=== PATIENT | female | born 1950 | race Caucasian/White ===

== ENCOUNTER → 2023-12-30 11:00 | Outpatient (REF) | payer MEDICARE, OTHER, SELFPAY | LOC: WDC 11:00 | PROVIDERS: ATTENDING PHYSICIAN Family Medicine | DX: Z12.31 Encounter for screening mammogram for malignant neoplasm of breast (principal) | CPT/HCPCS: 77063; 77067 ==

== ENCOUNTER → 2025-02-05 09:28 | Outpatient (REF) | payer MEDICARE, OTHER, SELFPAY | LOC: WDC 09:28 | PROVIDERS: ATTENDING PHYSICIAN Family Medicine | DX: Z12.31 Encounter for screening mammogram for malignant neoplasm of breast (principal); M85.88 Other specified disorders of bone density and structure, other site | CPT/HCPCS: 77063; 77067; 77080 ==

== ENCOUNTER → 2025-02-18 08:35 | Outpatient (REF) | payer MEDICARE, OTHER, SELFPAY | LOC: WDC 08:35 | PROVIDERS: ATTENDING PHYSICIAN Family Medicine | DX: R92.8 Other abnormal and inconclusive findings on diagnostic imaging of breast (principal) | CPT/HCPCS: 76642 ==

== ENCOUNTER → 2025-04-16 08:19 | Outpatient (REF) | payer MEDICARE, OTHER, SELFPAY ==
--- NOTE | 2025-04-16 13:32 | OID.BR.INTR ---
SELENED Breast Navigator - Initial
- -
Date of Contact: 04/16/25
Met with patient. Patient given written information on navigator service available at [facility]. Will follow up as needed per protocol.
== END ==
LOC: WDC 08:19
PROVIDERS: ATTENDING PHYSICIAN Family Medicine
DX: N63.21 Unspecified lump in the left breast, upper outer quadrant (principal); N63.23 Unspecified lump in the left breast, lower outer quadrant
CPT/HCPCS: 19083; 19084; 88305; 88341; 88342; 88360; A4648

== ENCOUNTER → 2025-04-30 16:30 | Outpatient (REF) | payer MEDICARE, OTHER, SELFPAY | LOC: MRI 3T 16:30 | PROVIDERS: ATTENDING PHYSICIAN Surgery; FAMILY PHYSICIAN Family Medicine | DX: C50.919 Malignant neoplasm of unspecified site of unspecified female breast (principal) | CPT/HCPCS: 77049; A9585 ==

== ENCOUNTER → 2025-06-17 08:43 | Outpatient (REF) | payer MEDICARE, OTHER, SELFPAY | LOC: WDC 08:43 | PROVIDERS: ATTENDING PHYSICIAN Surgery; FAMILY PHYSICIAN Family Medicine | DX: C50.919 Malignant neoplasm of unspecified site of unspecified female breast (principal) | CPT/HCPCS: 38792; 76942; A9541 ==

== ENCOUNTER 2025-06-18 19:00 | Inpatient (IN) | payer MEDICARE, OTHER, SELFPAY ==
[2025-06-10 09:01] LABS: Hematocrit 43.2 % (37.0-47.0); Hemoglobin 14.4 g/dL (12.0-16.0); Mean Corp Hgb Conc. 33.3 g/dL (33.0-37.0); Mean Corpuscular Volume 88.5 fL (81.0-99.0); Nucleated Red Blood Cells % 0 %; Platelet Count 172 10^3/uL (130-400); Red Cell Dist. Width 13.2 % (11.5-14.5)
[2025-06-10 09:31] LABS: ALT (SGPT) 29 U/L (0-35); AST (SGOT) 32 U/L (14-36); Albumin 4.6 g/dl (3.5-5.0); Alkaline Phosphatase 71 U/L (38-126); Blood Urea Nitrogen 17 mg/dl (7-17); Calcium 10.0 mg/dl (8.4-10.2); Carbon Dioxide 31 mmol/L (22-30); Chloride 101 mmol/L (98-107); Glucose 108 mg/dl (70-99); Potassium 4.8 mmol/L (3.5-5.1); Sodium 141 mmol/L (135-145); Total Protein 7.4 g/dl (6.3-8.2); eGFR > 60.00
[2025-06-10 09:41] LABS: Prealbumin (Transthyretin) 30.1 mg/dl (17.6-36.0)
[2025-06-10 09:54] LABS: Vitamin D, 25-OH*** 46.8 ng/mL (30-80)
[2025-06-10 13:39] VITALS: BMI 27.3
[2025-06-18] VITALS (13 sets, daily range): BP systolic 5–149; BP diastolic 65–81; BMI 27.3
--- NOTE | 2025-06-18 13:00 | W.SUR.PREOP ---
Pre-Operative Surgical Note
-
I have examined this patient prior to the performance of the scheduled procedure.
The patient's condition is unchanged from the time of the current History and
Physical and the patient is able to undergo the scheduled procedure.
[2025-06-18] MEDS: NORMOSOL-R/PLASMALYTE-A 1000 IV (13:08)
--- NOTE | 2025-06-18 14:03 | OR.RPT ---
Addendum entered and electronically signed by Simone Brar MD 06/26/25 13:44:
Correction:
Date of procedure is 06/18/2025
Original Note:
Operative Report
Operative Report
Date of Procedure: 06/19/25
Surgeon: SIMRAN Brar MD
Preoperative diagnosis: Breast cancer
Postoperative diagnosis: Same
Procedure:
1. Bilateral immediate breast reconstruction with prepectoral tissue expanders
2. Total anterior coverage technique for ADM wrap
3. Spy angiography
Complications: None
Anesthesia: General
EBL:30cc
Finance And Administration Manager size: 12 cm
Indications for procedure: Patient was referred to me by Dr. Sanchez with a recent diagnosis of breast cancer. She was planned to undergo bilateral mastectomy. We discussed her options for breast reconstruction at length including implant based
and autologous options. The patient opted for immediate reconstruction with tissue expanders. She understands that the final reconstruction will be staged. We also discussed the use of ADM and spy angiography. Risks include reconstructive
failure, capsular contracture, infection, delayed wound healing, mastectomy skin flap necrosis, hematoma, seroma and need for repeat procedure. Patient understood these risks and desired to proceed. Consents were signed accordingly.
Procedure in detail: Patient was identified the preoperative area and the surgical site was confirmed to be the bilateral breast. All questions were answered and consents were confirmed. Patient was then sat upright and normal anatomical landmarks
were marked including midline and inframammary fold. Patient was then taken back to the operating room placed supine on the table. She was prepped and draped in the usual sterile fashion using ChloraPrep solution. A Maos catheter was placed. A
timeout for patient safety was performed was confirmed that bilateral SCDs were in place and preoperative antibiotics administered. The procedure began with Dr. Sanchez first performing the mastectomy. Her op report will be dictated separately.
When I entered the procedure, the first sided mastectomy had been completed. As such I inspected the wound bed of the chest wall and ensured meticulous hemostasis. The base width was measured and appropriate tissue epic ambulatory specialists was selected. Two 6 x
16 sheets of Cortiva ADM were soaked in dilute Betadine solution and passed through the skin graft mesher on carrier of 1-1.5. This construct was then draped around the tissue epic ambulatory specialists in a total anterior coverage technique. The epic ambulatory specialists ADM
construct was then sutured to the chest wall with a series of 2-0 silk sutures. Pectoralis and intercostal blocks were performed with Marcaine. 2 drains were then placed in the preaxial area line with a long subcutaneous tunnel and sutured in
place with 2-0 Prolene sutures. The wound was irrigated with double antibiotic solution and dilute Betadine. The mastectomy incisions were then closed with a series of 3-0 Vicryl's in the deep subcutaneous tissues followed by 3-0 and 4-0
Monocryl's in the deep dermis and superficial skin.
Attention was then placed on the contralateral side after completion of the mastectomy. The exact same procedure was performed. An epic ambulatory specialists of the same size was opened and 2 sheets of ADM were soaked in Betadine, meshed, and draped around the
anterior surface of the epic ambulatory specialists in a total anterior coverage technique. The construct was then sutured to the chest wall using 2-0 silks. Pectoralis and intercostal blocks were performed. Meticulous hemostasis was ensured and the wound was
irrigated with combination of double antibiotic solution consisting of Ancef and gentamicin as well as dilute Betadine. The wound was closed in layers with 3-0 Vicryl followed by 3-0 Monocryl and 4-0 Monocryl superficial skin.
Spy angiography was performed after closure to ensure adequate vascularity of the bilateral mastectomy flaps. This was confirmed. The wounds were dressed accordingly and a supportive bra was placed. The patient was extubated taken to the PACU for
further care. All counts were correct at the end the case was performed out complication.
--- NOTE | 2025-06-18 14:04 | W.IMMPOSTOP ---
Surgical Immed Post Op Note
-
Primary Surgeon: SIMRAN Brar MD
Assisting Surgeon:
Pre-op Diagnosis: Breast CA
Post-op Diagnosis: Same
Procedure Performed: Bilateral immediate breast reconstruction with tissue expanders, ADM, spy
Anesthesia Type: GA
Specimen / Cultures: Per Dr. Sanchez
Estimated Blood Loss: 30cc
Complications: None
Operative Findings: As expected
--- NOTE | 2025-06-18 17:56 | W.IMMPOSTOP ---
Surgical Immed Post Op Note
-
Primary Surgeon: Daniel
Assisting Surgeon: None
Pre-op Diagnosis: Left breast ca
Post-op Diagnosis: Left breast ca
Procedure Performed: bilateral skin sparing mastectomies and left sentinel lymph node mapping and biopsy
Anesthesia Type: GET
Specimen / Cultures: Bilateral breasts, left sentinel nodes
Estimated Blood Loss: 20cc
Complications: None
Operative Findings: None
--- NOTE | 2025-06-18 17:58 | OR.RPT ---
Addendum entered and electronically signed by Erinn Sanchez MD 06/23/25 15:35:
Synoptic operative report [place] node
Operation performed with curative intent: Yes
Dye used in neoadjuvant setting: N/AA
Tracer used in not neoadjuvant setting: Radioactive
Lymph nodes at end of dye filled channels removed: N/A
All significant radioactive lymph nodes removed: Yes
All clinically palpable suspicious lymph nodes removed: Yes
Positive nodes prior to neoadjuvant chemotherapy clipped: N/A
Original Note:
Operative Report
Operative Report
Operative date 06/18/2025
Surgeon: Daniel
Preoperative diagnosis: Multicentric left breast carcinoma
Postoperative diagnosis: Multicentric left breast carcinoma
Procedure: Bilateral skin sparing mastectomies and left sentinel lymph node mapping and biopsy
The patient is a 74-year-old female who had image detected infiltrating lobular carcinoma of the left breast. This was found to be multicentric and after consulting with plastic surgery she presents for bilateral skin-sparing mastectomies and left
sentinel lymph node mapping and biopsy. On the day prior to the procedure the patient presented to the [place] [facility] where technetium radiotracer was injected into the breast parenchyma. On the day of the procedure she presented to
same-day surgical services. She was prepped and verified site and procedures. She will also be undergoing immediate implant-based reconstruction. DVT and antibiotic prophylaxis were provided. Plastic surgery marked the incisions.
The patient was taken to the operating room and in the supine position general anesthesia was induced. Amos catheter was inserted using aseptic technique. Both arms were secured to armboards using Tre wrap's. Chest and breast as well as upper
abdomen are prepped and draped in usual sterile fashion. An appropriate timeout was performed by all team members.
Dissection was begun on the right side. Incision was made sharply and the marked periareolar region which included excision of the nipple areolar complex and inferior skin. Skin flaps were elevated using the PlasmaBlade and lighted retractor. The
breast was taken off the chest wall in a superior to inferior dimension. Time out of body was noted and the specimen was oriented for the pathologist. Hemostasis was verified and a moist pack was placed in the resection cavity. Plastic surgery
entered to begin the reconstructive portion of the procedure.
In the same manner the left side was approached and the breast was resected. This allowed entry into the axilla. Clavipectoral fascia was incised and using the neoprobe gamma probe 3 sentinel node packets were encountered and excised by clamping
feeding vessels and tying with 3-0 silk. Hemostasis was verified and a moist pack was placed in this cavity.
All sponge needle and instrument counts were correct at this juncture. Plastic surgery continued with the reconstructive portion of the procedure
([id number], [id number])
--- NOTE | 2025-06-18 18:46 | PTCARENOTE ---
Pt arrived to 2S in bed. KIKE drain sites C/D/I, sutured in place. B/L breast DSGs C/D/I, soft around the site, no hematoma noted, surgical bra maintained. Drowsy but easily arouses to verbal stimuli. Bed locked and in the lowest position, safety
maintained. Oriented to room and call salazar, spouse at bedside.
[2025-06-18] MEDS: NEURONTIN 100 MG PO (22:21)
[2025-06-18] MEDS: ANCEF 5 IV (22:21)
[2025-06-18] MEDS: FLUSH (NSS) 2 FLUSH IV (22:21)
[2025-06-18] MEDS: TYLENOL 1000 MG PO (22:22)
[2025-06-19 03:00] VITALS: BP 104/57
[2025-06-19] MEDS: TYLENOL 1000 MG PO ×2 (05:48→11:17)
[2025-06-19] MEDS: FLUSH (NSS) 2 FLUSH IV (05:49)
[2025-06-19] MEDS: ANCEF 5 IV ×2 (05:49→13:40)
[2025-06-19 07:03] LABS: Hematocrit 39.4 % (37.0-47.0); Hemoglobin 12.8 g/dL (12.0-16.0)
[2025-06-19 07:05] VITALS: BP 139/67
[2025-06-19 07:34] LABS: Blood Urea Nitrogen 18 mg/dl (7-17); Calcium 9.0 mg/dl (8.4-10.2); Carbon Dioxide 27 mmol/L (22-30); Chloride 102 mmol/L (98-107); Estimated Creatinine Clearance 56 ml/min; Glucose 127 mg/dl (70-99); Potassium 4.2 mmol/L (3.5-5.1); Sodium 134 mmol/L (135-145); eGFR > 60.00
[2025-06-19] MEDS: NEURONTIN 100 MG PO (08:33)
--- NOTE | 2025-06-19 08:47 | W.PN.UPDATE ---
Addendum entered and electronically signed by Erinn Sanchez MD 07/19/25 11:40:
The patient's pathology report was resulted on 06/22/25 and showed metastatic cancer in ipsilateral lymph nodes.
Original Note:
Update Note
Progress Note Update
The patient is POD #1 S/P bilateral skin sparing mastectomies and left sentinel node mapping and biopsy for multicentric left ILC with implant-based reconstruction performed by Dr. Brar. She is doing well overnight and has no pain.
Plans to eat. Flaps viable with no evidence of bleeding. Drainage not unexpected. Plan D/C to home and will follow up with our offic ein [address] Brar this week. Pathology pending.
[2025-06-19 11:32] VITALS: BP 124/60
--- NOTE | 2025-06-19 13:13 | VNURNOTE ---
Home Health Liaison met with patient and spouse at bedside to discuss HH nurse/therapy, visits, schedule and homebound status. Patient is agreeable and understands that visits at home will be 2-3 x per week to assess and teach medical and drain
management. Reviewed with patient and spouse that [facility] are able to see pt and are available for next day visit. Patient is agreeable to [facility]. She is aware they will contact them for start of care day after
discharge from .
[facility] referral completed in [facility]. CM updated.
--- NOTE | 2025-06-19 13:15 | W.DCSUMMARY ---
Discharge Summary
Discharge Data
Date of Admission: 06/18/25
Date of Discharge: 06/19/25
-
Pending Results: Yes
Additional Pending Results:
pathology
Hospital Course
Routine postop course after bilateral mastectomy and immediate general dentist reconstruction. Progressively able to ambulate, tolerate regular diet, pain well controlled.
Discharged to home with [facility] and closure surgical follow up.
Discharge Plan
-
Patient Disposition: Home (Routine Discharge)
Discharge Diagnosis/Procedures: s/p bilateral mastectomy and immediate general dentist recon
Condition: Good
Diet: Regular
Activity: No strenuous activity
Additional Activity: T valeriy arms for ROM
Driving Restrictions: Not until seen by your Dr
Bathing Restrictions: OK to Shower
Other Services: [facility]
Wound Care: strip and record drain output twice daily
Referrals:
Claritza Saucedo DO [Family Provider, Family Practice]
Prescriptions:
New
tramadol 50 mg Tablet
50 mg PO Q6HPRN PRN (Reason: pain) Qty: 14 0RF
diazepam 2 mg Tablet
2 mg PO TIDPRN PRN (Reason: Muscle Spasms) Qty: 20 0RF
gabapentin 100 mg Capsule
100 mg PO TID 30 Days Qty: 90 0RF
Continued
cyanocobalamin (vitamin B-12) [Vitamin B-12] 1,000 mcg Tablet
1,000 mcg PO MOWEFR
acetaminophen 500 mg Tablet
1,000 mg PO Q6H PRN (Reason: pain)
ascorbic acid (vitamin C) [Vitamin C] 250 mg Tablet
1,000 mg PO PRN PRN (Reason: Cold Symptoms)
hydrochlorothiazide 25 mg Tablet
25 mg PO DAILY
metoprolol succinate 25 mg Tablet Extended Release 24 Hr
25 mg PO DAILY
cholecalciferol (vitamin D3) [Vitamin D3] 25 mcg (1,000 unit) Capsule
25 mcg PO DAILY
rosuvastatin [Crestor] 5 mg Tablet
5 mg PO MOWEFR
Discharge Orders:
Discharge Patient (As Directed); Ordered 06/19/25
Ordered By: Simone Brar
Discharge Date and Time
Print Language: BULGARIAN
--- NOTE | 2025-06-19 13:35 | W.PN.PLAS ---
Progress Note
Subjective Data
Doing well
Denies SOB
Objective Data
Vital Signs
Temp Pulse Resp BP Pulse Ox
98.0 F 61 16 124/60 95
06/19/25 11:32 06/19/25 11:32 06/19/25 11:32 06/19/25 11:32 06/19/25 11:32
Intake and Output
06/18/25 06/19/25 06/20/25
06:59 06:59 06:59
Intake Total 480 / 480 180 / 180
Output Total 328 / 328
Balance 152 / 152 180 / 180
Intake:
Oral fluids 480 / 480 180 / 180
Output:
Drain Output (Total) 328 / 328
Left Breast Angel-Grider C 10 / 10
Left Breast Angel-Grider D 185 / 185
Right Breast B 35 / 35
Right Breast Angel-Grider A 98 / 98
Other:
Number of approximated MODERATE 2 2
amounts of urine
PEX:
NAD
No increased WOB
Bilateral breasts with expanders in place
Dressings c/d/i
Drains serosang with appropriate output
Lab Results
06/19/25 06:01
06/19/25 06:01
Assessment / Plan
s/p bilateral mastectomy and immediate automotive painter helper reconstruction
Routine postop
Home today with VN
[2025-06-19 13:50] VITALS: BP 112/53
--- NOTE | 2025-06-19 14:13 | CM ---
Addendum entered by Tish Hampton 06/19/25 15:14:
IA completed. IMM given and placed on the chart. Lives with her amarjit in a condo. There is an elevator in the building.Independent with ADLs and IADLs. No hx of HH, home O2 or SNF. DME: rolling walker and Spc. Pt states she does not need these
devices. No insecurities identified. Confirmed PCP, Rx, insurance and drug coverage
Is current with [facility] who will provide drain care.
PCP: Claritza Saucedo
Rx: DONNELL/Kelvin
Original Note:
Pt is discharged home today. [facility] ([facility] will resume care upon discharge
--- NOTE | 2025-07-05 06:25 | PN.CDI ---
CDI
- -
CDI:
Physician Documentation Request
Admit Date: 06/18/25 19:00
Dear Doctor Zonia,
Please review the following and provide your response in the progress notes.
Clinical Indicators:
The diagnosis of 'one lymph node positive for metastatic carcinoma' was included in the signed path report.
Please indicate in your progress notes if you are in agreement that the above diagnosis is valid for this patient:
____ - Lymph node metastatic carcinoma is a valid diagnosis (Please include it in your progress notes)
____ - Lymph node metastatic carcinoma is not a valid diagnosis for this patient
____ - Lymph node metastatic carcinoma is not yet confirmed but remains a suspected condition
____ - Other
____ - Unable to determine
Use of terms such as suspected, likely, concern for, or probable are acceptable for a diagnosis that is being evaluated, monitored or treated as if it exists and can be coded in the inpatient setting, when documented at the time of discharge.
Thank you,
Cristina Crowell
Tin Roofer
Please use your independent medical judgment in providing your response.
--- NOTE | 2025-07-19 10:01 | PN.CDI ---
CDI
- -
CDI:
Physician Documentation Request
Admit Date: 06/18/25 19:00
Dear Doctor Daniel,
Please review the following and provide your response in the progress notes.
Clinical Indicators:
The diagnosis of 'one lymph node positive for metastatic carcinoma' was included in the signed path report.
Please indicate in your progress notes if you are in agreement that the above diagnosis is valid for this patient:
____ - Lymph node metastatic carcinoma is a valid diagnosis (Please include it in your progress notes)
____ - Lymph node metastatic carcinoma is not a valid diagnosis for this patient
____ - Lymph node metastatic carcinoma is not yet confirmed but remains a suspected condition
____ - Other
____ - Unable to determine
Use of terms such as suspected, likely, concern for, or probable are acceptable for a diagnosis that is being evaluated, monitored or treated as if it exists and can be coded in the inpatient setting, when documented at the time of discharge.
Thank you,
Apoorva Salguero
Time Broker
Please use your independent medical judgment in providing your response.
== END 2025-06-19 14:20 | disposition home health service (06) | DRG 580 ==
LOC: 2 SOUTH 19:00
PROVIDERS: ADMITTING PHYSICIAN Surgery Plastic and Reconstructive Surgery; FAMILY PHYSICIAN Family Medicine; REFERRING PHYSICIAN Surgery
PROC: 0HHV0NZ Insertion of Tissue Expander into Bilateral Breast, Open Approach (ICD-10-PCS; 2025-06-18)
PROC: 0HTV0ZZ Resection of Bilateral Breast, Open Approach (ICD-10-PCS; 2025-06-18)
PROC: 07B60ZX Excision of Left Axillary Lymphatic, Open Approach, Diagnostic (ICD-10-PCS; 2025-06-18)
DX: C50.412 Malignant neoplasm of upper-outer quadrant of left female breast (principal); C77.3 Secondary and unspecified malignant neoplasm of axilla and upper limb lymph nodes; Z17.0 Estrogen receptor positive status [ER+]; D05.01 Lobular carcinoma in situ of right breast
CPT/HCPCS: 38792; 76942; 80048; 80053; 82306; 84134; 85014; 85018; 85025; 88307; 88341; 88342; 88360; 93005; A9541; C1789; L8000; Q4100

== ENCOUNTER → 2025-07-09 11:15 | Outpatient (REF) | payer MEDICARE, OTHER, SELFPAY | LOC: CLAB 11:15 | PROVIDERS: ATTENDING PHYSICIAN Surgery Plastic and Reconstructive Surgery | DX: C50.912 Malignant neoplasm of unspecified site of left female breast (principal); Z42.1 Encounter for breast reconstruction following mastectomy; L76.34 Postprocedural seroma of skin and subcutaneous tissue following other procedure | CPT/HCPCS: 87015; 87070; 87205 ==